=== PATIENT | male | born 1955 | race Caucasian/White ===

== ENCOUNTER 2018-08-20 10:09 | Outpatient (CLI) | payer OTHER, SELFPAY ==
--- NOTE | 2018-08-20 13:38 | DI.RAD_ITS ---
SYMPTOM/DIAGNOSIS: NIGHT SWEATS, PERSISTENT COUGH, R61, R05 PA AND LATERAL CHEST: There are no prior comparison exams. The cardiac and mediastinal contours have a normal appearance. The lungs appear clear. No infiltrate or effusion is seen. No mass or adenopathy is identified. IMPRESSION: Negative chest x-ray.
== END 2018-08-20 10:29 ==
PROVIDERS: PCP Nurse Practitioner; Visit Provider Internal Medicine
DX: R61 Generalized hyperhidrosis (principal); R05 Cough
CPT/HCPCS: 71046

== ENCOUNTER 2018-08-20 13:59 | Outpatient (CLI) | payer OTHER, SELFPAY ==
[2018-08-20 14:37] LABS: Abs Immature Grans 0.04 k/cumm (0.0-0.09); Absolute Basophil Count 0.03 k/cumm (0.0-0.2); Absolute Eosinophil Count 0.15 k/cumm (0.0-0.7); Absolute Lymphocyte Count 1.79 k/cumm (1.2-3.4); Absolute Monocyte Count 0.79 k/cumm (0.11-0.7); Absolute Neutrophil Count 8.82 k/cumm (1.2-6.7); Basophils % 0.3; Eosinophils % 1.3; HCT 39.1 % (40.0-50.0); HGB 12.9 g/dL (13.5-17.5); Immature Grans % 0.3; Lymphocytes % 15.4; Mean Corpuscular Volume 87.9 fL (80-95); Mean Platelet Volume 8.9 fL (8.0-11.0); Monocytes % 6.8; Neutrophils % 75.9; Platelet Count 497 x1000/uL (130-400); RBC 4.45 m/cumm (4.50-6.00); RBC Distribution Width 12.5 % (11.8-14.1); White Blood Cell Count 11.62 k/cumm (4.4-10.8)
== END 2018-08-20 14:19 ==
PROVIDERS: PCP Nurse Practitioner Family; Visit Provider Internal Medicine
DX: R61 Generalized hyperhidrosis (principal); R05 Cough
CPT/HCPCS: 36415; 85025

== ENCOUNTER 2019-01-18 08:04 | Day surgery (SDC) | payer OTHER, SELFPAY ==
--- NOTE | 2019-01-18 06:47 | W.COLOREPORT ---
Date of service: 01/18/19 Time of Service: : Colonoscopy Report Date of procedure: 01/18/19 Pre-op diagnosis general: Colon Cancer Screening Post-op diagnosis procedure note: other (Colorectal polyps, Diverticulosis) Procedure: Colonoscopy with polypectomy by cold forceps Surgeon: Yohana Keith Anesthesia proc note operative: other (General/ ASA 2/Cristian Mo, LORRAINE) Estimated blood loss (mL): 3 Pathology: other (Cecal polyp and Transverse polyp) Complications: None Disposition: same day Indications: Mr. Diamond is a pleasant 63 year old male seen in the office for a repeat colonoscopy. His last colonoscopy was in the 2005 and was unremarkable. Risks, benefits and complications have been reviewed. Complications include but are not limited to bleeding, pain, perforation, missed small lesion/polyp, sore throat, aspiration and adverse reaction to the medications. Questions were entertained and answered to their satisfaction and they wished to proceed. No guarantees were given or implied. Prep: Miralax/Dulcolax Procedure Start Time: : Procedure End Time: : Retraction Time: 26 minutes Findings: @ sessile polyps and mild diverticulosis of sigmoid colon Procedure Description: After informed consent was obtained the patient was taken to the procedure room and placed in a left decubitous position. Monitors were applied and a time out was done. The patients name, date of , procedure, allergies to medications and metal in their body was reviewed. The patient was then sedated. Once sedated and comfortable a rectal exam was done. External exam was normal. Internal exam revealed a normal sphincter tone and no palpable masses. The prostate felt smooth. The scope was then introduced and retro-flexed. No internal hemorrhoids were identified. The scope was then advanced to the cecum without difficulty. The TI and appendiceal orifice were identified. The prep was adequate. The scope was then slowly retracted over 26 minutes back into the rectum. Polyps were removed with cold forceps in the cecum and Transverse colon. There was also mild diverticulosis noted in the sigmoid colon. The scope was removed and the patient was woken up and taken back to Same day surgery in stable condition. The patient tolerated the procedure well and there were no immediate complications. Follow up: The patient should follow up in 3-5 years unless they develop changes in bowel habits or other new gastrointestinal complaints.
--- NOTE | 2019-01-18 06:48 | W.PM.DSUDISC ---
Discharge Plan Disposition Patient Disposition: HOME Condition: Good Discharge Details Reason For Visit: Colon Cancer Screening Attending Provider: Yohana Keith Primary Care Provider: Stephanie Collins Home Meds and New Rx's Prescriptions: Continued magnesium oxide [MagOx] 400 mg (241.3 mg magnesium) tablet 400 mg PO PRN RF: 0 Discontinued polyethylene glycol 3350 17 gram/dose powder 238 g PO ONCE Qty: 238 RF: 0 bisacodyl [Dulcolax (bisacodyl)] 5 mg tablet,delayed release (DR/EC) 5 mg PO ONCE Qty: 4 RF: 0 Discharge Instructions Instructions: Colonoscopy (DC), Diverticulosis (DC), Colorectal Polyps (DC) Additional Instructions: Findings: 2 small polyps and mild diverticulosis Follow up: 3-5 years Please call if you develop: fevers >101.5 Nausea or Vomiting Abdominal pain that is not transient DAY SURGERY UNIT POST COLONOSCOPY INSTRUCTIONS 1. Because there will be medication in your system for the next 24 hours, you may feel a little sleepy. Your coordination will be affected. Therefore: a. Do not drive or operate dangerous equipment for 24 hours. b. Do not drink alcohol beverages for 24 hours (not even beer). c. Plan to go home and rest for the day. 2. Generally there are no restrictions on your activity after a day or so has gone by, but you may feel a bit fatigued for a few days. 3 After you arrive home you may have a light meal and return to a normal diet as you can tolerate it without feeling sick to your stomach. 4. After surgery, you may feel pain or discomfort. This should be only transient, but if it persists please contact your doctor. 5. If there are any questions regarding the findings of your procedure, please feel free to contact your doctor. 6. If you are unable to contact your doctor with a problem, contact the hospital at [phone]. 7. Continue all your regular medications unless directed otherwise. I understand the above instructions and have no questions. Signature of Patient or Responsible Adult Escort Date/Time Name of Responsible Adult Escort Signature of Nurse Date/Time Activity:: Activity as Tolerated Diet:: High Fiber Discharge Orders Discharge Orders: Discharge Order (Routine); Ordered 01/18/19 Ordered By: Yohana Keith DS: Diagnosis Discharge Diagnosis (1) S/P colonoscopy: Status: Acute (2) Colorectal polyps: Status: Acute (3) Diverticulosis: Status: Acute
[2019-01-18 08:25] VITALS: BP 126/73; PULSE 57; RESP 16; TEMP 36.2; O2SAT 98
[2019-01-18] MEDS: Lactated Ringers 1,000 ML 80 ML IV (08:45)
--- NOTE | 2019-01-18 09:31 | BOWEL_PTH ---
PATIENT: Javed Diamond LOC: [facility] U#:[id number] AGE/SX: 63/M ROOM: RE01/18/[address]: Yohana Keith MD : 1955 BED: DIS: 01/18/2019 SPEC #: [id number] RECD: 01/18/19 12:49 STATUS: SUSAN REQ #: [id number] LISA: 01/18/19 09:[address]: Yohana Keith DEPT: Surgical Specimen RECD BY: Nadine Perez ENTERED: 01/18/19 12:51 SP TYPE: Bowel OTHR DR: Stephanie Collins Tissues: 1 - BIOPSY BOWEL 2 - BIOPSY BOWEL Procedures: GROSS AND MICRO LEVEL 4 Comments: [id number]
[2019-01-18 10:28] VITALS: BP 142/88; PULSE 61; RESP 18; TEMP 35.8; O2SAT 94
== END 2019-01-18 11:18 | disposition home or self-care (01) ==
LOC: SUR 08:05
PROVIDERS: PCP Nurse Practitioner Family; Visit Provider Surgery
PROC: 0DJD8ZZ Inspection of Lower Intestinal Tract, Via Natural or Artificial Opening Endoscopic (ICD-10-PCS; CPT 45378; principal; 2019-01-18 09:30)
DX: Z12.11 Encounter for screening for malignant neoplasm of colon (principal); D12.0 Benign neoplasm of cecum; K63.5 Polyp of colon; K57.30 Diverticulosis of large intestine without perforation or abscess without bleeding
CPT/HCPCS: 45380; 88305

== ENCOUNTER 2019-06-08 15:37 | Outpatient (REF) | payer OTHER, SELFPAY ==
[2019-06-08 21:50] LABS: Hemoglobin A1C 6.2 % (4.5-6.2)
[2019-06-08 22:56] LABS: Calculated LDL 160 mg/dL; Cholesterol 253 mg/dL (50-200); HDL Cholesterol 47 mg/dL (40-60); Triglyceride 231 mg/dL (30-150)
== END 2019-06-08 15:57 ==
LOC: NCHCN 15:37
PROVIDERS: PCP Nurse Practitioner Family; Visit Provider Nurse Practitioner Family
DX: R73.03 Prediabetes (principal); E78.5 Hyperlipidemia, unspecified; G47.62 Sleep related leg cramps; Z00.00 Encounter for general adult medical examination without abnormal findings; F41.9 Anxiety disorder, unspecified; H93.12 Tinnitus, left ear; R29.4 Clicking hip; K63.5 Polyp of colon
CPT/HCPCS: 80061; 83036

== ENCOUNTER 2020-06-15 21:21 | Outpatient (REF) | payer OTHER, SELFPAY ==
[2020-06-29 16:16] LABS: Hepatitis C Ab w Rflx HCV PCR Negative (Negative)
== END 2020-06-15 21:41 ==
LOC: NCHCN 21:21
PROVIDERS: PCP Nurse Practitioner Family; Visit Provider Nurse Practitioner Family
DX: Z00.00 Encounter for general adult medical examination without abnormal findings (principal); Z11.59 Encounter for screening for other viral diseases; E78.5 Hyperlipidemia, unspecified; R73.03 Prediabetes
CPT/HCPCS: 86803

== ENCOUNTER 2021-06-19 13:34 | Outpatient (REF) | payer OTHER, SELFPAY ==
[2021-06-19 22:21] LABS: Calculated LDL 198 mg/dL (<100); Cholesterol 274 mg/dL (<200); HDL Cholesterol 42 mg/dL (40-60); Triglyceride 173 mg/dL (<150)
[2021-06-19 22:26] LABS: Hemoglobin A1C 6.1 % (<5.7)
[2021-06-21 09:31] LABS: HIV-1/2 Ag & Ab Screen Negative (Negative)
[2021-06-22 16:56] LABS: ALT 30 U/L (16-63); AST 19 U/L (15-37); Alkaline Phosphatase 83 U/L (46-116); BUN 23 mg/dL (7-18); Bilirubin, Total 0.4 mg/dL (0.2-1.0); CREATININE 0.9 mg/dL (0.70-1.30); Chloride 104 mmol/L (98-107); Glucose 104 mg/dL (74-106); Potassium 4.8 mmol/L (3.5-5.1); Sodium 141 mmol/L (136-145); Total Protein 7.6 g/dL (6.4-8.2)
== END 2021-06-19 13:35 | disposition home or self-care (01) ==
LOC: NCHCN 13:34
PROVIDERS: PCP Nurse Practitioner Family; Visit Provider Nurse Practitioner Family
DX: E78.5 Hyperlipidemia, unspecified (principal); Z00.00 Encounter for general adult medical examination without abnormal findings; Z11.4 Encounter for screening for human immunodeficiency virus [HIV]; R73.03 Prediabetes
CPT/HCPCS: 80061; 82947; 84520; 87389; 82247; 82435; 82565; 83036; 84075; 84132; 84155; 84295; 84450; 84460

== ENCOUNTER 2021-07-30 13:45 | Outpatient (REF) | payer OTHER, SELFPAY ==
[2021-07-30 16:11] LABS: ALT 27 U/L (16-63); AST 18 U/L (15-37); Albumin 3.9 g/dL (3.4-5.0); Alkaline Phosphatase 71 U/L (46-116); Anion Gap 7.1 mmol/L (3-11); BUN 18 mg/dL (7-18); Bilirubin, Total 0.6 mg/dL (0.2-1.0); CO2 28.9 mmol/L (21.0-32.0); Calcium 8.7 mg/dL (8.5-10.1); Calculated LDL 126 mg/dL (<100); Chloride 106 mmol/L (98-107); Cholesterol 191 mg/dL (<200); Glucose 93 mg/dL (74-106); HDL Cholesterol 52 mg/dL (40-60); Potassium 4.6 mmol/L (3.5-5.1); Sodium 142 mmol/L (136-145); Total Protein 7.4 g/dL (6.4-8.2); Triglyceride 68 mg/dL (<150)
== END 2021-07-30 13:46 | disposition home or self-care (01) ==
LOC: NCHCN 13:45
PROVIDERS: PCP Nurse Practitioner Family; Visit Provider Nurse Practitioner Family
DX: E78.5 Hyperlipidemia, unspecified (principal); R73.03 Prediabetes
CPT/HCPCS: 80053; 80061

== ENCOUNTER 2023-01-22 10:58 | Outpatient (CLI) | payer OTHER, SELFPAY ==
--- NOTE | 2023-01-22 10:45 | DI.RAD_ITS ---
Exam(s) XR SHOULDER LT COMPLETE 2+V EXAM: XR SHOULDER LT COMPLETE 2+V CLINICAL HISTORY: left shoulder pain. TECHNIQUE: 2D digital imaging was performed of the left shoulder. Two images were obtained. AP, Gr ashey, Y-view and axillary views were obtained. COMPARISON: CR XR CHEST 2V PA LATERAL from 08/20/2018 FINDINGS: BONES: No acute fracture is present. No bony destructive lesion is seen. JOINTS: No dislocation present. There are degenerative changes seen at the acromioclavicular joint. The glenohumeral joint appears well maintained. SOFT TISSUE: Calcification is seen in the soft tissues adjacent to the greater tuberosity consistent with calcific tendinitis. IMPRESSION: Degenerative changes of the AC joint and calcific tendinitis. DATA REPOSITORY: RADIATION DOSE DELIVERED:
== END 2023-01-22 10:59 | disposition home or self-care (01) ==
LOC: DIORS 10:58
PROVIDERS: PCP Nurse Practitioner Family; Referring Provider Nurse Practitioner Family; Visit Provider Student in an Organized Health Care Education/Training Program
DX: M19.012 Primary osteoarthritis, left shoulder (principal)
CPT/HCPCS: 73030

== ENCOUNTER 2023-03-06 09:11 | Outpatient (REF) | payer OTHER, SELFPAY ==
[2023-03-06 16:45] LABS: ALT 26 U/L (16-63); AST 18 U/L (15-37); Alkaline Phosphatase 72 U/L (46-116); BUN 16 mg/dL (7-18); Bilirubin, Total 0.7 mg/dL (0.2-1.0); Calcium 9.4 mg/dL (8.5-10.1); Calculated LDL 130 mg/dL (<100); Chloride 103 mmol/L (98-107); Cholesterol 200 mg/dL (<200); Estimated GFR 83.01 (mL/min/1.73m2); Glucose 104 mg/dL (74-106); HDL Cholesterol 59 mg/dL (40-60); Potassium 5.2 mmol/L (3.5-5.1); Sodium 140 mmol/L (136-145); Total Protein 7.5 g/dL (6.4-8.2); Triglyceride 56 mg/dL (<150)
== END 2023-03-06 09:12 | disposition home or self-care (01) ==
LOC: NCHCN 09:11
PROVIDERS: PCP Nurse Practitioner Family; Visit Provider Nurse Practitioner Family
DX: Z00.00 Encounter for general adult medical examination without abnormal findings (principal); R73.03 Prediabetes; E78.5 Hyperlipidemia, unspecified; R55 Syncope and collapse
CPT/HCPCS: 80053; 80061

== ENCOUNTER 2023-04-09 11:37 | Outpatient (REF) | payer OTHER, SELFPAY ==
[2023-04-09 16:08] LABS: Anion Gap 6.1 mmol/L (3-11); BUN 22 mg/dL (7-18); CO2 28.9 mmol/L (21.0-32.0); CREATININE 0.9 mg/dL (0.70-1.30); Calcium 9.2 mg/dL (8.5-10.1); Chloride 104 mmol/L (98-107); Estimated GFR 94.19 (mL/min/1.73m2); Glucose 101 mg/dL (74-106); Potassium 4.3 mmol/L (3.5-5.1); Sodium 139 mmol/L (136-145)
== END 2023-04-09 11:38 | disposition home or self-care (01) ==
LOC: NCHCN 11:37
PROVIDERS: PCP Nurse Practitioner Family; Visit Provider Nurse Practitioner Family
DX: E87.5 Hyperkalemia (principal)
CPT/HCPCS: 80048

== ENCOUNTER 2023-04-09 11:44 | Outpatient (CLI) | payer OTHER, SELFPAY ==
--- NOTE | 2023-04-09 11:15 | DI.RAD_ITS ---
Exam(s) XR SHOULDER RT COMPLETE 2+V EXAM: XR SHOULDER RT COMPLETE 2+V CLINICAL HISTORY: right shoulder pain. TECHNIQUE: 2D digital imaging was performed. COMPARISON: CR XR CHEST 2V PA LATERAL from 08/20/2018 CR XR SHOULDER LT COMPLETE 2+V from 01/22/2023 FINDINGS: Two views. No evidence of fracture or dislocation glenohumeral joint. No obvious degenerative changes the gleno humeral joint. No soft tissue calcifications. Some degenerative changes in the AC joint. No os acr omiale. Bone density normal. No osseous lesions. IMPRESSION: No significant osseous findings. DATA REPOSITORY: RADIATION DOSE DELIVERED:
== END 2023-04-09 11:45 | disposition home or self-care (01) ==
LOC: DIORS 11:44
PROVIDERS: PCP Nurse Practitioner Family; Visit Provider Physician Assistant
DX: M25.511 Pain in right shoulder (principal)
CPT/HCPCS: 73030

== ENCOUNTER 2023-05-14 07:02 | Day surgery (SDC) | payer OTHER, SELFPAY ==
[2023-05-14 07:12] VITALS: BP 115/81; PULSE 84; RESP 18; TEMP 36.7; O2SAT 99
[2023-05-14] MEDS: Lactated Ringers 1,000 ML 80 ML IV (07:30)
--- NOTE | 2023-05-14 07:35 | W.ANESPRE ---
General Info Date of Service Date Performed: 05/14/23 Height: 5 ft 11 in Weight: 75.4 kg Body Mass Index (BMI): 23.1 Surgical Procedure: Operation Date: 05/14/23 08:20 Proposed Procedure Side Surgeon p Colonoscopy Ch[place] Willingham MD Meds Allergies and Home Medications Allergies Allergy/AdvReac Type Severity Reaction Status Date / Time No Known Allergies Allergy Verified 05/14/23 07:21 Home Medication Medication Instructions Recorded magnesium oxide 400 mg (241.3 mg 400 mg PO PRN 01/01/19 magnesium) tablet (MagOx) simvastatin 20 mg tablet 20 mg PO HS 01/22/23 Current Visit Medications: Current Medications Generic Name Dose Route Start Last Admin Trade Name Freq PRN Reason Stop Dose Admin Ringer's Solution 1,000 mls @ 80 mls/hr 05/14/23 06:00 05/14/23 07:30 IV 06/12/23 23:59 80 mls/hr INFUSION JOSE Administration IV Miscellaneous Supplies 1 each 05/14/23 06:00 Iv Access IV 06/12/23 23:59 DIRECTED JOSE Sodium Chloride 0 ml 05/14/23 06:00 Normal Saline Flush 10 Ml Syr IV 06/12/23 23:59 PRN PRN Sodium Chloride 0 ml 05/14/23 06:00 Normal Saline 10 Ml Vial IJ 06/12/23 23:59 DIRECTED PRN Sterile Water 0 ml 05/14/23 06:00 Water,Injection,Sterile 10 Ml Vial IJ 06/12/23 23:59 DIRECTED PRN PFSH Active Problems Active Problems: Problem Status Onset Code Right shoulder pain M25.511 Calcific tendinitis of left shoulder M75.32 Scapular dyskinesis G25.89 Snoring R06.83 Leg cramps R25.2 Serrated adenoma of colon D12.6 Post-nasal drip R09.82 Prediabetes R73.03 Dyspepsia R10.13 Near syncope R55 Pain in left shoulder M25.512 Sensorineural hearing loss (SNHL) of left ear with unrestricted hearing of right ear H90.42 Conductive hearing loss, external ear H90.2 Impacted cerumen of both ears H61.23 Diverticulosis K57.90 Colorectal polyps K63.5 S/P colonoscopy ~01/18/19 Z98.890 Sensorineural hearing loss of left ear 02/15/16 H90.5 Tinnitus of left ear 02/15/16 H93.12 Medical History Medical History (Updated 05/13/23 @ 09:22 by Casey Warren) History of deviated nasal septum Carpal tunnel syndrome, bilateral Clicking tinnitus of left ear Hyperlipidemia Tinea pedis Anxiety Pt. denies Surgical History Surgical History History of carpal tunnel surgery Hx of colonoscopy Tobacco Smoking/Tobacco Use Status: Former Tobacco Use Alcohol Alcohol Intake: never Substance Use Substance use: Occasionally Substance use type: marijuana Details: marijuana: t-3, hit Vital Signs and Lab Results Vital Signs Most Recent Vital Signs in EMR: Most Recent Vital Signs Temp Pulse Resp BP Pulse Ox 36.7 C 84 18 115/81 99 05/14/23 07:12 05/14/23 07:12 05/14/23 07:12 05/14/23 07:12 05/14/23 07:12 Lab Results Blood Type / Crossmatch: No Data to Display Complete Blood Count: No Data to Display Complete Metabolic Panel: No Data to Display Liver Function Panel: No Data to Display Coagulation Panel: No Data to Display Cardiac Panel: No Data to Display Arterial Blood Gas: No Data to Display Venous Blood Gas: No Data to Display Pancreas Panel: No Data to Display Thyroid Panel: No Data to Display Infectious Disease: No Data to Display Blood Cultures: No Data to Display Toxicology Panel: No Data to Display Anesthesia Assessment and Plan Anesthesia History Personal History: No History of Anesthesia Complications Family History: No Family History of Anesthesia Complications Exercise Tolerance Exercise Tolerance: Metabolic Equivalents>4 Pertinent Negatives Pertinent Negatives: No Symptoms of GERD Cardiac & Pulmonary Exam Cardiac Exam: Normal S1/S2 Heart Sounds Pulmonary Exam: Clear Bilateral Breath Sounds Implantable Cardiac Device Does patient have a Pacemaker or an ICD?: No Airway Exam Known Difficult Airway: No Mallampati Class: 2 Mouth Opening: Normal (> 3cm) Thyromental Distance: Greater than 3 cm Neck Range of Motion: Full ROM Neck Circumference: Normal Teeth Condition: Normal Dentition ASA Classification ASA Score: ASA 2 Emergency Case?: No NPO Status NPO Status: NPO Clears >2 hours, Solids >8 hours Anesthesia Plan Resuscitation Status: Full Code Anesthesia Technique: General Anesthesia Airway Planned: Natural Airway Monitors Used: Standard Monitors
[2023-05-14 07:37] VITALS: BMI 23.1
--- NOTE | 2023-05-14 08:20 | W.SURGCON ---
Date of service: 05/14/23 Time of Service: 08:20 Assessment and Plan Assessment and plan (1) Serrated adenoma of colon: Status: Acute Assessment and plan: 68-year-old man due for surveillance colonoscopy without any symptoms but an increased risk because of sessile serrated adenoma in the past. Overall plan: Surveillance colonoscopy History of Present Illness Narrative: Consult update. Last colonoscopy 3 to 4 years ago was sessile serrated adenoma polyp removed. He has no symptoms or complaints. No family history of colon cancer. PFSH All Active Problems (Updated 05/13/23 @ 09:22 by Casey Warren) Right shoulder pain (Acute) Calcific tendinitis of left shoulder (Acute) Scapular dyskinesis (Acute) left Snoring (Acute) Leg cramps (Acute) Serrated adenoma of colon (Acute) Post-nasal drip (Acute) Prediabetes (Acute) Dyspepsia (Acute) Near syncope (Acute) Pain in left shoulder (Acute) Sensorineural hearing loss (SNHL) of left ear with unrestricted hearing of right ear (Acute) Conductive hearing loss, external ear (Acute) Impacted cerumen of both ears (Acute) Diverticulosis (Acute) Colorectal polyps (Acute) S/P colonoscopy (Acute ~01/18/19) 2005-normal Sensorineural hearing loss of left ear (Acute 02/15/16) Tinnitus of left ear (Acute 02/15/16) Medical History (Updated 05/13/23 @ 09:22 by Casey Warren) History of deviated nasal septum Carpal tunnel syndrome, bilateral Clicking tinnitus of left ear Hyperlipidemia Tinea pedis Anxiety Pt. denies Surgical History History of carpal tunnel surgery Hx of colonoscopy Family History Mother Breast cancer Father , 1991 Metastatic lung cancer (metastasis from lung to other site) Social History Smoking/Tobacco Use Status: Former Tobacco Use Quit Date: 07/28/91 Smoking risk assessment performed?: Yes Alcohol Intake: never Drug use: Occasionally Substance use type: marijuana Details: marijuana: t-3, hit Housing: house Current gender identity: male Do you feel safe at home: Yes Do you feel safe in your relationship?: Yes Exam Narrative Exam Narrative: General: Nontoxic, comfortable and interactive Neuro: Alert and oriented x3 Psych: Good mood and affect, good insight and understanding Chest: Nonlabored breathing Heart: Regular Results Last Vital Signs Temp 98.1 F 05/14/23 07:12 Pulse 84 05/14/23 07:12 Resp 18 05/14/23 07:12 BP 115/81 05/14/23 07:12 Pulse Ox 99 05/14/23 07:12
[2023-05-14 09:00] VITALS: BP 98/65; PULSE 78; RESP 16; TEMP 36.4; O2SAT 96
--- NOTE | 2023-05-14 09:14 | W.ANESPOSTOP ---
Postoperative Evaluation Date, Time and Location Date Performed: 05/14/23 Time Performed: 09:14 Patient Location: Day Surgery Unit Vital Signs Most Recent Imported Vital Signs: Most Recent Vital Signs Temp Pulse Resp BP Pulse Ox 36.7 C 84 18 115/81 99 05/14/23 07:12 05/14/23 07:12 05/14/23 07:12 05/14/23 07:12 05/14/23 07:12 Pain Score Most Recent Pain Score: Most Recent Pain Score Pain Level 0 05/14/23 07:12 Assessment Mental Status: Awake (Alert & Oriented to Patient Baseline) Airway and Respiratory Function: Patent airway with normal (patient baseline) respiratory exam Cardiovascular Function: Hemodynamically Stable Hydration Status: Adequately Hydrated Nausea & Vomiting: No Nausea or Vomiting Pain: Pt. Denies Any Pain Peripheral Nerve Block: Patient did not receive a nerve block
--- NOTE | 2023-05-14 09:23 | COLE_ITS ---
Date of service: 05/14/23 Time of Service: : Colonoscopy Report Procedure Description: Procedures performed: 1. Colonoscopy Preoperative diagnosis: Surveillance colonoscopy Postoperative diagnosis: Grade 1 internal hemorrhoids Surgeon: Prema Willingham Anesthesia: Clarence Indication for procedure: Patient is a 68-year-old man with no significant family history of colon cancer but he had a sessile serrated adenomatous polyp on his last colonoscopy 3-4 years ago. No symptoms. Findings: The terminal ileum was normal. I did not see or find any new polyps. No inflammation or any other disease processes seen in the colon. Grade 1 internal hemorrhoids noted in the rectum on retroflexion. Surveillance/follow-up recommendations: 5 years considering the prior history of sessile serrated adenoma Complications: None Blood loss: Minimal Specimens:?? None Quality of Prep:?? Good Procedure in detail: Written consent was obtained from the patient who was in agreement with the risks, benefits and indications of the procedure.? We went to the endoscopy suite and laid the patient in left lateral decubitus position.? Anesthesia was administered which was tolerated well.? A timeout was performed and when we are all in agreement we began the procedure. Digital rectal exam and visual examination was performed and within normal limits.? A well?lubricated colonoscope was advanced without difficulty all the way to the cecum identified by the ileocecal valve, and triangular folds and appendiceal orifice.? The terminal ileum was normal. The scope was then slowly withdrawn.?? Retroflexion was performed in the rectum.? The findings/i nterventions are noted above. The scope was then removed and the patient tolerated the procedure well and was then taken back to the PACU in hemodynamically stable condition.
[2023-05-14 09:26] VITALS: BP 131/85; PULSE 77; RESP 18; TEMP 36.5; O2SAT 97
--- NOTE | 2023-05-14 09:26 | W.PM.DSUDISC ---
Date of service: 05/14/23 Time of Service: 09:26 Discharge Plan Disposition Patient Disposition: Home Condition: Good Discharge Details Attending Provider: Chico Willingham Primary Care Provider: Stephanie Collins Home Meds and New Rx's Prescriptions: No Action magnesium oxide [MagOx] 400 mg (241.3 mg magnesium) tablet 400 mg PO PRN Patient Comments: as needed for muscle cramping simvastatin 20 mg tablet 20 mg PO HS Discharge Instructions Stand Alone Forms: Colonoscopy Post Instructions DS: Diagnosis Discharge Diagnosis (1) Serrated adenoma of colon: Status: Acute Asessment and Plan: No new polyps today. Because of the history you should have a repeat colonoscopy in 5 years. Separately and incidentally, mild internal hemorrhoid disease was seen. This is a benign condition and nothing needs to be done about it as long as you are not having symptoms.
== END 2023-05-14 07:03 | disposition home or self-care (01) ==
PROVIDERS: PCP Nurse Practitioner Family; Visit Provider Student in an Organized Health Care Education/Training Program
PROC: 0DJD8ZZ Inspection of Lower Intestinal Tract, Via Natural or Artificial Opening Endoscopic (ICD-10-PCS; CPT 45378; principal; 2023-05-14 08:15)
DX: K64.0 First degree hemorrhoids; Z12.11 Encounter for screening for malignant neoplasm of colon; Z86.010 Personal history of colon polyps
CPT/HCPCS: 45378; 00123; J2001

== ENCOUNTER 2023-06-26 13:03 | Outpatient (REF) | payer OTHER, SELFPAY ==
[2023-06-26 16:46] LABS: Abs Immature Grans 0.02 10^3/uL (0.0-0.06); Absolute Basophil Count 0.07 10^3/uL (0.0-0.2); Absolute Eosinophil Count 0.24 10^3/uL (0.0-0.7); Absolute Lymphocyte Count 1.99 10^3/uL (1.2-3.4); Absolute Monocyte Count 0.91 10^3/uL (0.1-0.8); Absolute Neutrophil Count 4.43 10^3/uL (1.2-6.7); Basophils % 0.9; Eosinophils % 3.1; HCT 44.2 % (40.0-50.0); HGB 14.6 g/dL (13.5-17.5); Immature Grans % 0.3; MCH 28.9 pg (27.0-33.0); MCV 88 fL (80-95); MPV 9.8 fL (8.0-11.0); Monocytes % 11.9; Neutrophils % 57.8; Platelet Count 277 10^3/uL (130-400); RBC 5.05 10^6/uL (4.36-5.78); RDW 12.6 % (11.8-14.1); WBC 7.66 10^3/uL (4.4-10.8)
[2023-06-26 17:04] LABS: Iron 110 ug/dL (65-175); Total Iron Binding Capacity 291 ug/dL (250-450); Transferrin Sat 38 % (20-55)
[2023-06-26 17:39] LABS: Ferritin 434 ng/mL (26-388); TSH (W/Ref FT4) 1.25 uIU/mL (0.36-3.74)
== END 2023-06-26 13:04 | disposition home or self-care (01) ==
LOC: NCHCN 13:03
PROVIDERS: PCP Nurse Practitioner Family; Visit Provider Nurse Practitioner Family
DX: R55 Syncope and collapse (principal)
CPT/HCPCS: 82728; 83540; 83550; 84443; 85025

== ENCOUNTER 2024-02-08 10:09 | Emergency (ER) | payer OTHER, SELFPAY ==
[2024-02-08] VITALS (51 sets, daily range): BP systolic 99–138; BP diastolic 51–74; PULSE 53–67; RESP 10–20; TEMP 35.8–36.6; O2SAT 94–98
--- NOTE | 2024-02-08 10:25 | W.ED.GENAD ---
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 You received antibiotics and an updated tetanus. Your wound was cleaned. An x-ray was obtained. Please follow-up with Dr. Bey tomorrow. As we discussed if you develop fevers worsening pain or any blood striking through your dressings please return to the emergency department. For your pain please take medications as follows: 1. Take acetaminophen (Tylenol), 1,000 mg (two 500 mg tabs) every 6 hours [2. Take ibuprofen (Advil), 400 mg every 6 hours.] If you have additional pain please elevate your hand. You may also benefit from sleeping with your hand elevated on several pillows. A narcotic prescription has been sent to the pharmacy for you. Please take this only as needed after taking the above medications. Please do not drive or operate any machinery after taking this narcotic medication. Please note that if you take more than 3 narcotic tablets you should begin a stool softener as narcotics make people constipated. You are also receiving nausea prescriptions which she should take as needed. Referrals: [facility] [Provider Group] HPI General Date/Time Provider Initiated Documentation: 02/08/24 10:19. HPI Narrative: MDM Primary survey intact. Reassuring shock index. On secondary survey patient has left ring finger distal amputation just distal to the DIP joint with intact motor function proximally and bleeding controlled. Wound was cleaned. Fingertip wrapped in clean gauze and placed in a dry bag on ice. Tetanus was updated. Patient received 2 g of cefazolin. Will obtain plain films. Due to lack of orthopedic availability will consult orthopedic surgery at [facility]. 10:40 AM I spoke to Dr. Quintanilla at [facility] from the emergency department who graciously agreed to accept the patient. At the same time, patient's , who works with Dr. Bey in the postop recovery area, contacted Dr. Bey from the orthopedic team at [facility]. Dr. Bey offered to care for the patient tomorrow with washout and delayed primary closure. He will touch base with the patient's . 10:58 AM I touched base with the patient and his following the conversation with Dr. Bey. They prefer to be discharged from the emergency department following an x-ray and to follow-up tomorrow with orthopedics at [facility] with Dr. Bey. Dr. Bey and I spoke. Will discharge patient with 5 days of cephalexin ondansetron for nausea and immediate release morphine to use for breakthrough pain in addition to acetaminophen and ibuprofen scheduled. We discussed elevation at night to improve throbbing. Basic metabolic panel showing mild hyperglycemia but no anion gap and normal bicarbonate??not consistent with DKA. No LAVONNE. CBC lacks anemia thrombocytopenia and leukocytosis. Patient and his understood return indications and patient was discharged with empiric trial of expectant outpatient management. I reached out back to the transfer center at [facility] and rescinded my transfer request. Chronic conditions affecting the care of the patient: Hyperlipidemia History obtained from an outside historian: Patient's External record review: No [facility] records Medications: Tetanus cefazolin morphine Social determinants of health affecting disposition: N/A Management discussed with: Emergency medicine [facility] & Dr. Bey Treatment/interventions considered: Transfer but deferred based on patient preference Response to therapies provided: Improved pain in the emergency department HPI This is a [id number] not anticoagulated 68-year-old male arrived to the emergency department via private vehicle with his in the setting of distal left ring finger amputation. 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 He inadvertently got his finger caught in the water and amputated his left ring finger. He denies any other injuries. He was in his usual state of health earlier today. He denies history of diabetes. Exam General: Well-appearing in no acute distress speaking in complete sentences. Head: Normocephalic, atraumatic. Eye: Extraocular eye movements intact. No conjunctival injection. No scleral icterus. Ear, nose, mouth, throat: Grossly normal inspection. Normal voice, handling secretions normally. Neck: Trachea midline. Cardiovascular: Well-perfused distal extremities. Respiratory: Nonlabored respiration. Gastrointestinal: Nondistended abdomen. Musculoskeletal: Hemostatic left ring finger complete amputation just distal to the DIP joint. Intact range of motion across the MCP and PIP joints of left ring finger. Difficult to assess range of motion in left ring finger DIP joint. Ischemic appearing fingertip and dry gauze and bag on ice. Skin: Normal for age and race, grossly normal temperature and turgor. No acute rash. Neurologic: Alert and appropriate, no apparent acute deficits. GCS 15. Psychiatric: Mood and manner are appropriate. Grooming and personal hygiene are appropriate. Related Data Home Medications ?Medication ?Instructions ?Recorded ?Confirmed magnesium oxide 400 mg (241.3 mg 400 mg PO PRN 01/01/19 09/17/23 magnesium) tablet (MagOx) simvastatin 20 mg tablet 20 mg PO HS 01/22/23 09/17/23 cephalexin 250 mg capsule 250 mg PO QID 5 days #20 caps 02/08/24 morphine 15 mg immediate release 15 mg PO Q8H PRN #7 tabs 02/08/24 tablet Previous Rx's ?Medication ?Instructions ?Recorded cephalexin 250 mg capsule 250 mg PO QID 5 days #20 caps 02/08/24 morphine 15 mg immediate release 15 mg PO Q8H PRN #7 tabs 02/08/24 tablet Allergies Allergy/AdvReac Type Severity Reaction Status Date / Time No Known Allergies Allergy Verified 09/17/23 12:01 General Stated Complaint: Laceration KARTIK: 2 Course Vital Signs Vital signs: Vital Signs Temperature 35.8 C L 02/08/24 10:12 Pulse 67 02/08/24 10:12 Respiratory Rate 16 02/08/24 10:12 Blood Pressure 122/74 02/08/24 10:12 Pulse Oximetry 94 02/08/24 10:12 Temperature 35.8 C L 02/08/24 10:12 Temperature Source Tympanic 02/08/24 10:12 Pulse 67 02/08/24 10:12 Respiratory Rate 16 02/08/24 10:12 Blood Pressure 122/74 02/08/24 10:12 Blood Pressure Position Sitting 02/08/24 10:12 Pulse Oximetry 94 02/08/24 10:12 Oxygen Delivery Method Room Air 02/08/24 10:12 Oxygen Flow Rate 0 02/08/24 10:12 Pain Level 3 02/08/24 10:12 Medical Decision Making Quality:SDOH Health Related Social Needs: No Data to Display PFSH All Active Problems (Updated 02/08/24 @ 11:11 by Jun Thapa MD) 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 (Acute) Right shoulder pain (Acute) Calcific tendinitis of left shoulder (Acute) Scapular dyskinesis (Acute) left Snoring (Acute) Leg cramps (Acute) Serrated adenoma of colon (Acute) Post-nasal drip (Acute) Prediabetes (Acute) Dyspepsia (Acute) Near syncope (Acute) Pain in left shoulder (Acute) Sensorineural hearing loss (SNHL) of left ear with unrestricted hearing of right ear (Acute) Conductive hearing loss, external ear (Acute) Impacted cerumen of both ears (Acute) Diverticulosis (Acute) Colorectal polyps (Acute) S/P colonoscopy (Acute ~01/18/19) 2006-normal Sensorineural hearing loss of left ear (Acute 02/15/16) Tinnitus of left ear (Acute 02/15/16) Medical History History of deviated nasal septum Carpal tunnel syndrome, bilateral Clicking tinnitus of left ear Hyperlipidemia Tinea pedis Anxiety Pt. denies Surgical History History of carpal tunnel surgery Hx of colonoscopy (~04/2023) Repeat 5 years Family History Mother Breast cancer Father , 1991 Metastatic lung cancer (metastasis from lung to other site) Social History Smoking/Tobacco Use Status: Former Tobacco Use Quit Date: 07/28/91 Smoking risk assessment performed?: Yes Alcohol Intake: never Drug use: Occasionally Substance use type: marijuana Details: marijuana: t-3, hit Housing: house Current gender identity: male Do you feel safe at home: Yes Do you feel safe in your relationship?: Yes
[2024-02-08 10:45] LABS: Abs Immature Grans 0.02 10^3/uL (0.0-0.06); Absolute Basophil Count 0.05 10^3/uL (0.0-0.2); Absolute Eosinophil Count 0.25 10^3/uL (0.0-0.7); Absolute Lymphocyte Count 1.53 10^3/uL (1.2-3.4); Absolute Monocyte Count 0.98 10^3/uL (0.1-0.8); Absolute Neutrophil Count 3.71 10^3/uL (1.2-6.7); Basophils % 0.8 %; Eosinophils % 3.8 %; HCT 43.8 % (40.0-50.0); Immature Grans % 0.3 %; Lymphocytes % 23.4 %; MCH 29.5 pg (27.0-33.0); MCHC 34.2 % (32.0-36.0); MCV 86 fL (80-95); MPV 9.2 fL (8.0-11.0); Neutrophils % 56.7 %; Platelet Count 241 10^3/uL (130-400); RBC 5.08 10^6/uL (4.36-5.78); RDW 12.8 % (11.8-14.1); RDW-SD 40.1 fL; WBC 6.54 10^3/uL (4.4-10.8)
[2024-02-08] MEDS: Normal Saline 500 ML IV (10:47)
[2024-02-08] MEDS: MORPHine 10 MG/ML VIAL 6 MG IVP (10:48)
[2024-02-08] MEDS: Ondansetron 4 MG/2 ML VIAL IVP (10:49)
[2024-02-08] MEDS: ACETAMINOPHEN 1,000 MG/100 ML BTL 400 MG IVPB (10:53)
[2024-02-08 10:58] LABS: BUN 21 mg/dL (7-18); CREATININE 0.9 mg/dL (0.70-1.30); Calcium 8.9 mg/dL (8.5-10.1); Chloride 105 mmol/L (98-107); Estimated GFR 94.19 (mL/min/1.73m2); Glucose 206 mg/dL (74-106); Sodium 142 mmol/L (136-145)
--- NOTE | 2024-02-08 11:01 | DI.RAD_ITS ---
Exam(s) XR FINGER LT RING EXAM: XR FINGER LT RING CLINICAL HISTORY: Amputation. TECHNIQUE: 2D digital imaging was performed. Three views. COMPARISON: None. FINDINGS: BONES: Amputation of the the distal 2/3 of the distal phalanx of the ring finger. Overlying gauze. No bony destructive lesion is seen. JOINTS: No dislocation present. SOFT TISSUE: Soft tissue defect at distal ring finger. IMPRESSION: Amputation of the distal 2/3 of the distal phalanx of the ring finger. DATA REPOSITORY: RADIATION DOSE DELIVERED:
[2024-02-08 11:07] LABS: CO2 26.7 mmol/L (21.0-32.0)
[2024-02-08 11:09] LABS: Anion Gap 10.3 mmol/L (3-11)
[2024-02-08] MEDS: ceFAZolin 2 GM/50 ML BAG IVPB (11:12)
--- NOTE | 2024-02-08 11:24 | DI.VRAD_ITS ---
PROCEDURE INFORMATION: Exam: XR Left Finger(s) Exam date and time: 02/08/2024 11:00 AM Age: 68 years old Clinical indication: Injury or trauma; Other: Amputation TECHNIQUE: Imaging protocol: Radiologic exam of the left fingers. Views: Minimum 2 views. COMPARISON: No relevant prior studies available. FINDINGS: Bones/joints: The 4th distal phalanx has been amputated just above the base. No other acute fracture. Soft tissues: Soft tissue swelling of the 4th digit. IMPRESSION: Distal phalangeal amputation. Dictated and Authenticated by: Sree Sierra MD. Ordering:JUN Barahona MD
[2024-02-08] MEDS: Ketorolac 15 MG/ML VIAL IVP (11:32)
== END 2024-02-08 12:00 | disposition home or self-care (01) ==
LOC: ER 11:42
PROVIDERS: Emergency Provider Emergency Medicine; PCP Nurse Practitioner Family
DX: S68.125A Partial traumatic metacarpophalangeal amputation of left ring finger, initial encounter (principal); E78.5 Hyperlipidemia, unspecified; Z23 Encounter for immunization
CPT/HCPCS: 80048; 90715; 96374; 96375; 99284; 73140; 85025; J0131; J0690; J1885; J2003; J2270; J2405

== ENCOUNTER 2024-02-09 14:40 | Day surgery (SDC) | payer OTHER, SELFPAY ==
[2024-02-09 15:19] VITALS: BP 127/63; PULSE 62; RESP 16; TEMP 37; O2SAT 95
--- NOTE | 2024-02-09 15:43 | HPE_ITS ---
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 Given this location I think it is best that we perform a revision amputation. He has just a little bit of bone left of the distal p halanx I do not think it makes sense to preserve this. I would thus plan to perform a disarticulation and then close the skin overlying the end of the middle phalanx. This can be done with local anesthetic. I reviewed the risk of the procedure to include bleeding, infection, pain, stiffness, skin healing difficulties, need for repeat procedures, contractures. 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 The wire got wrapped around his finger, tightened, and caused a traumatic imitation of the left ring finger through the distal phalanx just distal to the DIP joint. He was seen in the emergency department yesterday. I was unable to see him on that day in the ED but pictures were sent to me and I was called in consultation. I agreed to perform a revision amputation today. He currently denies any significant pain. Has had no active bleeding. Denies fevers or chills. 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 (Acute) Right shoulder pain (Acute) Calcific tendinitis of left shoulder (Acute) Scapular dyskinesis (Acute) left Snoring (Acute) Leg cramps (Acute) Serrated adenoma of colon (Acute) Post-nasal drip (Acute) Prediabetes (Acute) Dyspepsia (Acute) Near syncope (Acute) Pain in left shoulder (Acute) Sensorineural hearing loss (SNHL) of left ear with unrestricted hearing of right ear (Acute) Conductive hearing loss, external ear (Acute) Impacted cerumen of both ears (Acute) Diverticulosis (Acute) Colorectal polyps (Acute) S/P colonoscopy (Acute ~01/18/19) 2006-normal Sensorineural hearing loss of left ear (Acute 02/15/16) Tinnitus of left ear (Acute 02/15/16) Medical History History of deviated nasal septum Carpal tunnel syndrome, bilateral Clicking tinnitus of left ear Hyperlipidemia Tinea pedis Anxiety Pt. denies Surgical History History of nasal surgery deviated septum repair History of carpal tunnel surgery Hx of colonoscopy (~04/2023) Repeat 5 years Family History Mother Breast cancer Father , 1991 Metastatic lung cancer (metastasis from lung to other site) Social History Smoking/Tobacco Use Status: Former Tobacco Use Quit Date: 07/28/91 Smoking risk assessment performed?: Yes Alcohol Intake: never Drug use: Occasionally Substance use type: marijuana Details: marijuana: one week Housing: house Current gender identity: male Do you feel safe at home: Yes Do you feel safe in your relationship?: Yes Additional Social history: UTAP Meds Allergies and Home Medications Allergies Allergy/AdvReac Type Severity Reaction Status Date / Time No Known Allergies Allergy Verified 02/09/24 15:10 Home Medications ?Medication ?Instructions ?Recorded ?Confirmed ?Type magnesium oxide 400 mg (241.3 mg 400 mg PO PRN 01/01/19 02/09/24 History magnesium) tablet (MagOx) simvastatin 20 mg tablet 20 mg PO HS 01/22/23 02/09/24 History cephalexin 250 mg capsule 250 mg PO QID 5 days #20 caps 02/08/24 02/09/24 Rx morphine 15 mg immediate release 15 mg PO Q8H PRN #7 tabs 02/08/24 02/09/24 Rx tablet acetaminophen 500 mg tablet 500 mg PO ONCE 02/09/24 02/09/24 History (Tylenol Extra Strength) ibuprofen .ROUTE 02/09/24 History Exam Extrem Other: Relatively transverse laceration through the distal phalanx. Slightly volar oblique. No gross contamination. He is able to flex and extend through the PIP joint. No DIP function. Results Imaging Imaging Studies: Xray of the left hand shows a transphalangeal amputation through the distal phalanx of the ring finger. Last Vital Signs Temp 37.0 C 02/09/24 15:19 Pulse 62 02/09/24 15:19 Resp 16 02/09/24 15:19 BP 127/63 02/09/24 15:19 Pulse Ox 95 02/09/24 15:19
[2024-02-09] MEDS: Normal Saline Flush 10 ML SYR IVP (15:45)
[2024-02-09] MEDS: ceFAZolin 2 GM/50 ML BAG IVPB (16:17)
[2024-02-09 17:00] VITALS: BP 135/72; PULSE 64; RESP 16; TEMP 36.5; O2SAT 96
--- NOTE | 2024-02-09 17:00 | W.PM.OP ---
Date of service: 02/09/24 Time of Service: 17:04 Operative Note Operative Note DATE OF PROCEDURE: 02/09/24 PRE-OP DIAGNOSIS: Transphalangeal amputation?left ring finger distal phalanx POST-OP DIAGNOSIS: same PROCEDURE: Irrigation and debridement of amputation site with revision amputation and secondary closure?left ring finger SURGEON: Jamey Bey ANESTHESIA TYPE: Local By Surgeon Refer to Anesthesia Record ESTIMATED BLOOD LOSS: 5 PATHOLOGY: none sent TOURNIQUET TIME: 0 COMPLICATIONS: None Patient was transported to: same day Patient's condition: stable Indications: Amauri presented to the emergency department with a traumatic amputation of his left ring finger 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 Given the nature of the amputation I recommended a revision of the amputation site with irrigation and debridement and hopeful closure. I discussed treatment options to include plastic surgery flap procedures to preserve length versus revision amputation and closure. Given the location of the fracture of the distal phalanx and the short amount distal phalanx remaining about a made best sense to proceed with a DIP disarticulation and closure. I reviewed the risks of the procedure to include, but not limited to, bleeding, infection, pain, stiffness, need for repeat procedures, damage to nerves or vessels. Despite these risks, the patient elected to proceed. Findings: There was a transverse and slightly volar oblique amputation through the distal phalanx of the left ring finger. There is no gross contamination. The remnant distal phalanx was splinted and fractured. A DIP disarticulation was performed and skin flaps were closed with no tension. Procedure Description: Amauri was greeted in the preoperative holding area where the correct side was identified and marked. The consent was reviewed with the patient and signed. All questions were answered. Amauri was taken back to the operating room. The patient was placed into the supine position on the operating room table with the left arm on an arm board. All bony prominences were well padded. Intravenous cefazolin was utilized prophylactic antibiotics. A timeout to confirm correct identity, side and site, procedure, allergies, anesthesia, and medical concerns was performed. The palmar aspect of the left ring finger MCP joint was prepped with ChloraPrep. A digital block was then performed using 1% lidocaine with epinephrine and buffered with sodium bicarbonate. This was allowed time to set up completely and then the hand including the amputated finger was prepped with Betadine. The finger was tested to make sure the anesthetic is set up completely. I then performed a debridement of the finger. There is very minimal contamination about the finger. Sharp debridement is performed first. I then irrigated the finger with 500 cc of normal saline. The tissue was healthy appearing. The remnant distal phalanx was inspected which show there would be splintered into 2 to 3 pieces. This was then removed through the DIP joint. Any portion of extensor and flexor tendon was removed. This exposed the head of the middle phalanx. There is no active bleeding. No active nervous tissue was seen. At the distal phalanx removed I was able to bring the dorsal flap of skin down to meet the volar skin. There is a natural corner and the tear pattern which mated very well with the palmar tissue. This was under no tension and left a gap about 2 to 3 mm of pulp tissue with no exposed tendon or bone. The finger was dressed with Xeroform, 4 x 4, conform dressing. The patient tolerated the procedure well and was returned to the Same Day Surgery area in a stable condition suffering no known complication. We will plan on dressing to remain in place for the next 4 days. The dressing should be removed in the office on Friday prior to his upcoming trip.
--- NOTE | 2024-02-09 17:12 | W.PM.DSUDISC ---
Date of service: 02/09/24 Time of Service: 17:12 Discharge Plan Disposition Patient Disposition: Home Condition: Good Discharge Details Reason For Visit: Left ring finger amputation Attending Provider: Jamey Bey Primary Care Provider: Stephanie Collins Home Meds and New Rx's Prescriptions: Continued acetaminophen [Tylenol Extra Strength] 500 mg tablet 500 mg PO ONCE Changed cephalexin 250 mg capsule 500 mg PO TID 5 Days Qty: 20 0RF No Action magnesium oxide [MagOx] 400 mg (241.3 mg magnesium) tablet 400 mg PO PRN Patient Comments: as needed for muscle cramping simvastatin 20 mg tablet 20 mg PO HS morphine 15 mg tablet 15 mg PO Q8H PRNQty: 7 0RF ibuprofen .ROUTE Discharge Instructions Additional Instructions: Discharge Instructions Activity: You should keep the hand/wrist elevated as much as possible for the first few days. You may use the other fingers as tolerated but avoid trying to do too much too soon. You may perform light activities with the finger in the dressing. However, try to keep the dressing clean and dry is much as possible. You may take a glove in place over this to keep it safe from contamination. It does get soiled the dressing should be changed. Dressing/Cast: Keep the dressing on until follow-up. If becomes unraveled or soiled may be changed. Medications: - You should take Tylenol and Ibuprofen for baseline pain control. - You have been prescribed a cephalexin for antibiotics. The initial prescription was for 250 mg 4 times a day. However, this should be taken at 500 mg 3 times a day until you run out of the medication. 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
--- NOTE | 2024-02-09 17:41 | NUR.NOTE ---
1520: Preop medications: tylenol and celebrex not given, pt. had taken tylenol and ibuprofen recently at home, see hand off sheetNursing Note:
== END 2024-02-09 17:32 | disposition home or self-care (01) ==
PROVIDERS: PCP Nurse Practitioner Family; Visit Provider Student in an Organized Health Care Education/Training Program
PROC: (CPT 26951; principal; 2024-02-09 16:00)
DX: S68.615A 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, initial encounter (principal); W45.8XXA Other foreign body or object entering through skin, initial encounter
CPT/HCPCS: 26236; J0690

== ENCOUNTER 2024-03-16 15:49 | Outpatient (CLI) | payer OTHER, SELFPAY ==
--- NOTE | 2024-03-16 13:00 | DI.RAD_ITS ---
Exam(s) XR SHOULDER LT COMPLETE 2+V EXAM: XR SHOULDER LT COMPLETE 2+V CLINICAL HISTORY: LEFT SHOULDER PAIN. TECHNIQUE: 2D digital imaging was performed of the left shoulder. Two images were obtained. Grashe y and Y views were obtained. COMPARISON: CR XR SHOULDER LT COMPLETE 2+V from 01/22/2023 FINDINGS: Examination is limited due to patient positioning. BONES: No acute fracture is present. No bony destructive lesion is seen. JOINTS: No dislocation present. Glenohumeral joint appears well maintained. Degenerative changes are seen at the acromioclavicular joint. SOFT TISSUE: There calcifications adjacent to the greater tuberosity suggesting calcific tendinitis. IMPRESSION: Degenerative changes of the AC joint and calcific tendinitis adjacent to the greater tuberosity. DATA REPOSITORY: RADIATION DOSE DELIVERED:
== END 2024-03-16 15:50 | disposition home or self-care (01) ==
LOC: DIORS 15:49
PROVIDERS: PCP Nurse Practitioner Family; Visit Provider Student in an Organized Health Care Education/Training Program
DX: M75.32 Calcific tendinitis of left shoulder (principal)
CPT/HCPCS: 73030

== ENCOUNTER 2025-06-22 10:03 | Outpatient (REF) | payer OTHER, SELFPAY ==
[2025-06-22 14:59] LABS: Hemoglobin A1C 5.8 % (<5.7)
[2025-06-22 15:03] LABS: ALT 20 U/L (10-49); AST 25 U/L (<34); Albumin 4.3 g/dL (3.2-5.0); Alkaline Phosphatase 65 U/L (46-116); Anion Gap 4.5 mmol/L (3-11); BUN 20 mg/dL (9-23); Bilirubin, Total 1.10 mg/dL (0.2-1.2); CO2 29.5 mmol/L (20.0-31.0); Calcium 9.4 mg/dL (8.3-10.6); Chloride 107 mmol/L (98-107); Cholesterol 206 mg/dL (<200); Ferritin 358 ng/mL (11-307); Glucose 95 mg/dL (74-106); HDL Cholesterol 58 mg/dL (>40); Potassium 4.9 mmol/L (3.5-5.1); Sodium 141 mmol/L (136-145); Total Protein 7.5 g/dL (5.7-8.2)
== END 2025-06-22 10:04 | disposition home or self-care (01) ==
LOC: NCHCN 10:03
PROVIDERS: PCP Nurse Practitioner Family; Visit Provider Nurse Practitioner Family
DX: R77.8 Other specified abnormalities of plasma proteins (principal); R73.03 Prediabetes; E78.5 Hyperlipidemia, unspecified
CPT/HCPCS: 80053; 80061; 82728; 83036